=== PATIENT | male | born 1950 | race Caucasian/White ===

== ENCOUNTER → 2016-04-18 | Outpatient (CLI) | payer OTHER | LOC: FIMAGING 11:41 | PROVIDERS: ATTEND Internal Medicine | DX: J18.1 Lobar pneumonia, unspecified organism (principal) ==

== ENCOUNTER 2016-04-22 13:26 | Inpatient (IN) | payer OTHER ==
[2016-04-22] MEDS ORDERED: NS 1,000 ML BAG *FOR SEPSIS ORDER SET ONLY IV ONE (13:54)
--- NOTE | 2016-04-22 13:58 | EDPHY ---
H & P Stated Complaint: recent pneumonia. Shacky, confused, "not himself" for 2 days. Time Seen by Provider: 04/22/16 13:45 HPI/ROS: CHIEF COMPLAINT: Pneumonia, confusion HISTORY OF PRESENT ILLNESS: Patient is a 65-year-old man with a history of chronic back pain treated with OxyContin oxycodone by Dr. Vanesa Segura of the pain service. His girlfriend brings him to the emergency department concerned for decreased mental status. She states that he saw Dr. Perrin on and was diagnosed with pneumonia on chest x-ray and started on amoxicillin. His states that over the last 4 days however his mental status has gradually decreased and he is confused. He had a fever on Friday and Friday. Here triage his oxygen saturations 97% on room air. His states that he does have a history of asthma but has not been wheezing recently. Patient seems somnolecent and over narcotized he says that he "feels great". REVIEW OF SYSTEMS: Constitutional: See HPI EENTM: denies: blurred vision, double vision, nose congestion Respiratory: See HPI Cardiac: denies: chest pain, irregular heart rate, lightheadedness, palpitations Gastrointestinal/Abdominal: denies: abdominal pain, diarrhea, nausea, vomiting, blood streaked stools Genitourinary: denies: dysuria, frequency, hematuria, pain Musculoskeletal: denies: joint pain, muscle pain Skin: denies: lesions, rash, jaundice, bruising Neurological: denies: headache, numbness, paresthesia, tingling, dizziness, weakness Hematologic/Lymphatic: denies: blood clots, easy bleeding, easy bruising Immunologic/allergic: denies: HIV/AIDS, transplant EXAM: GENERAL: Well-appearing, well-nourished and in no acute distress. HEAD: Atraumatic, normocephalic. EYES: Pupils 2 mm, equal round and reactive to light, extraocular movements intact, sclera anicteric, conjunctiva are normal. ENT: TMs normal, nares patent, oropharynx clear without exudates. Moist mucous membranes. NECK: Normal range of motion, supple without lymphadenopathy or JVD. LUNGS: Coarse breath sounds right lower lobe. HEART: Regular rate and rhythm without murmurs, rubs or gallops. ABDOMEN: Soft, nontender, normoactive bowel sounds. No guarding, no rebound. No masses appreciated. BACK: No CVA tenderness, no spinal tenderness, step-offs or deformities EXTREMITIES: Normal range of motion, no pitting or edema. No clubbing or cyanosis. NEUROLOGICAL: Cranial nerves II through XII grossly intact. Normal speech, normal gait. 5/5 strength, normal movement in all extremities, normal sensation PSYCH: Normal mood, normal affect. SKIN: Warm, dry, normal turgor, no visible rashes or lesions. Source: Patient Exam Limitations: No limitations - Personal History Current Tetanus Diphtheria and Acellular Pertussis (TDAP): Unsure - Medical/Surgical History Hx Asthma: Yes Hx Chronic Respiratory Disease: No Hx Diabetes: No Hx Cardiac Disease: No Hx Renal Disease: No Hx Cirrhosis: No Hx Alcoholism: No Hx HIV/AIDS: No Hx Splenectomy or Spleen Trauma: No Other PMH: Back pain. - Family History Significant Family History: No pertinent family hx - Social History Smoking Status: Never smoked Alcohol Use: None Drug Use: None Constitutional: Initial Vital Signs Temperature (C) 36.8 C 04/22/16 13:32 Heart Rate 80 04/22/16 13:32 Respiratory Rate 16 04/22/16 13:32 Blood Pressure 112/65 04/22/16 13:32 O2 Sat (%) 71 L 04/22/16 13:32 O2 Delivery Mode Nasal Cannula O2 (L/minute) 5 Allergies/Adverse Reactions: No Allergies [NKDA] Allergy (Verified 04/22/16 15:16) Home Medications: Medication Instructions Recorded Amox Tr/K Clav (Augmentin) 500 mg PO Q8 04/22/16 [Augmentin 500/125 MG TAB (*)] Atorvastatin Calcium [Lipitor 20 20 mg PO HS 04/22/16 mg (*)] Diazepam [Valium 10 MG (*)] 10 mg PO HS PRN 04/22/16 Fluticasone Nasal [Flonase Nasal 1 sprays NASAL DAILY 04/22/16 Brutus (RX)] Fluticasone/Salmeter 250/50Mcg 1 puffs IH DAILY 04/22/16 [Advair 250/50 (*)] Hydrochlorothiazide [HCTZ (*)] 12.5 mg PO DAILY 04/22/16 Lisinopril [Zestril 20 mg (*)] 20 mg PO DAILY 04/22/16 Naproxen Sodium [Aleve 220 MG (*)] 220 mg PO BID 04/22/16 Pregabalin [Lyrica] 300 mg PO BID 04/22/16 Zolpidem Tartrate [Ambien 10 mg] 5 - 10 mg PO HS PRN 04/22/16 oxyCODONE HCL [Oxycontin] 160 mg PO BID 04/22/16 oxyCODONE IR [Oxycodone Ir (*)] 15 mg PO Q6H PRN MDD MAX 3 TABS 04/22/16 DAILY oxyCODONE IR [Oxycodone Ir (*)] 30 mg PO Q4H PRN MDD MAX 6 TABS 04/22/16 DAILY Medical Decision Making - Diagnostics Imaging: X-ray: chest x-ray was obtained. I viewed the images myself on the PACS system. My interpretation of the images is: Bilateral infiltrates. The radiologist interpretation is bilateral infiltrates. ED Course/Re-evaluation: 3:05 p.m. we discussed the x-ray results. The patient is currently satting 93% on nasal cannula. I will admit for pneumonia and severe sepsis. He is receiving his fluid bolus. His vital signs remained stable. 3:10 p.m. I discussed the case with Dr. Traore who will admit. She agrees with Levaquin. Spoke with the family who understands. Differential Diagnosis: Partial list of the Differential diagnosis considered include but were not limited to; pneumonia, sepsis, electrolyte abnormality and although unlikely based on the history and physical exam, I also considered meningitis, CVA, acute coronary disease. Critical Care Time: Critical care time spent by me, Dr. Louise exclusive with this patient was 45 minutes, exclusive of the PA time exclusive of procedures. The organ system that was at risk was lungs and cardiovascular and I gave antibiotics and intravenous fluids to prevent worsening of the patient's condition - Data Points Laboratory Results: Laboratory Results 04/22/16 13:54 04/22/16 13:54 Microbiology Results: MICROBIOLOGY 04/22/16 13:54 Blood Blood Culture - Preliminary 04/22/16 14:39 Blood Blood Culture - Preliminary Medications Given: Discontinued Medications Levofloxacin/Dextrose (Levaquin 750 Mg (Premix)) 150 mls @ 100 mls/hr IV EDNOW ONE PRN Reason: Protocol Stop: 04/22/16 16:26 Last Admin: 04/22/16 15:25 Dose: 150 mls Levofloxacin/Dextrose (Levaquin 250 Mg (Premix)) 50 mls @ 50 mls/hr IV DAILY MARIELA PRN Reason: Protocol Stop: 05/23/16 08:59 Last Admin: 04/23/16 09:04 Dose: 50 mls Clindamycin Phosphate/Dextrose (Cleocin 600 Mg (Premix)) 50 mls @ 100 mls/hr IV Q8HRS MARIELA PRN Reason: Protocol Stop: 05/22/16 21:59 Last Admin: 04/23/16 05:49 Dose: 50 mls Magnesium Citrate (Magnesium Citrate) 150 - 300 ml PO ONCE ONE Stop: 04/24/16 09:36 Last Admin: 04/24/16 11:03 Dose: Not Given Pneumococcal 13-Valent Conj Vacc (Prevnar 13 Syringe) 0.5 ml IM .ONCE ONE Stop: 04/23/16 09:44 Last Admin: 04/23/16 11:03 Dose: 0.5 ml Sodium Chloride (Ns *For Sepsis Order Set Only*) 2,654 ml 30 ml/kg (2654 ml) IV EDNOW ONE Stop: 04/22/16 13:55 Last Admin: 04/22/16 14:04 Dose: 2,654 ml Departure - Departure Disposition: [facility] Acute Clinical Impression: Severe sepsis, Renal insufficiency Pneumonia Qualifiers: Pneumonia type: due to unspecified organism Laterality: bilateral Lung location : lower lobe of lung Qualified Code(s): J18.9 - Pneumonia, unspecified organism Condition: Critical
[2016-04-22 14:09] LABS: % IMMATURE GRANULYOCYTES 0.4 % (0.0-1.1); ABSOLUTE IMMATURE GRANULOCYTES 0.03 10^3/uL (0.00-0.10); ADD DIFF? NO; ADD MORPH? NO; ADD SCAN? YES; FRAGMENT RBC FLAG 0 (0-99); HEMATOCRIT 41.8 % (40.0-51.0); HEMOGLOBIN 14.1 g/dL (13.7-17.5); LEFT SHIFT FLG 60 (0-99); LIPEMIA HEMOLYSIS FLAG 80 (0-99); MEAN CELL HEMOGLOBIN 28.9 pg (27.9-34.1); MEAN CELL HEMOGLOBIN CONCENTR. 33.7 g/dL (32.4-36.7); MEAN CELL VOLUME 85.7 fL (81.5-99.8); MEAN PLATELET VOLUME 9.9 fL (8.7-11.7); PLATELET CLUMPS FLAG 0 (0-99); PLATELET COUNT 234 10^3/uL (150-400); RED BLOOD CELL COUNT 4.88 10^6/uL (4.40-6.38); RED CELL DISTRIBUTION WIDTH 14.2 % (11.5-15.2)
[2016-04-22 14:14] LABS: ATYPICAL LYMPHOCYTE FLAG 110 (0-99)
[2016-04-22 14:17] LABS: INR 1.34 (0.83-1.16); PROTIME(PATIENT) 16.6 SEC (12.0-15.0)
[2016-04-22 14:18] LABS: APTT 30.4 SEC (23.0-38.0)
[2016-04-22 14:29] LABS: ANION GAP 14 mEq/L (8-16); BILIRUBIN,TOTAL 1.2 mg/dL (0.1-1.4); CALCIUM 8.8 mg/dL (8.5-10.4); CARBON DIOXIDE 23 mEq/l (22-31); CHLORIDE 97 mEq/L (97-110); CREATININE 4.6 mg/dL (0.7-1.3); GLOMERULAR FILTRATION RATE 13; GLUCOSE 117 mg/dL (70-100); POTASSIUM 4.7 mEq/L (3.5-5.2); SODIUM 134 mEq/L (134-144)
[2016-04-22 14:53] LABS: SCAN NEGATIVE
[2016-04-22] MEDS ORDERED: DIAZEPAM 10 MG TAB PO PRN (16:41)
[2016-04-22] MEDS ORDERED: oxyCODONE IR 15 MG TAB PO PRN (16:41)
[2016-04-22] MEDS ORDERED: ZOLPIDEM TARTRATE 5 MG TAB PO PRN (16:49)
[2016-04-22 19:31] LABS: COLOR YELLOW; LEUKOCYTE ESTERASE,URINE NEGATIVE (NEGATIVE); NITRITE,URINE NEGATIVE (NEGATIVE)
--- NOTE | 2016-04-22 19:35 | GHP ---
[f rep st] HISTORY AND PHYSICAL DATE OF ADMISSION: 04/22/2016 CHIEF COMPLAINT: Confusion. HISTORY: The patient is a 65-year-old male who has been suffering from bronchitis for the last 2 weeks. He saw his primary care doctor last Friday and was diagnosed with walking pneumonia and given a prescription for Augmentin. Despite this, he has had worsening status including worsening shortness of breath and confusion. He had a fever at the beginning of his illness, but none recently. He has a new cough, productive of a yellow, dark sputum. There has been no chest pain. There has been no lower extremity edema. He has had poor oral intake and has been progressively more confused as noticed by his girlfriend. He has been dizzy, lightheaded, fatigue, and weak. PAST MEDICAL HISTORY: 1. Chronic back pain with continuous narcotic dependency. 2. Hypertension. 3. Hyperlipidemia. MEDICATIONS: Please see computer record for full detailed list. ALLERGIES: No known drug allergies. SOCIAL HISTORY: No smoking. Social alcohol. He lives with his girlfriend. REVIEW OF SYSTEMS: Complete review of systems obtained. Review of systems is negative regarding constitutional, HEENT, GI, pulmonary, cardiovascular, , hematology, skin, musculoskeletal, endocrine, and psychiatric, except for positives and negatives as in HPI. FAMILY HISTORY: Father was an alcoholic. Mother of a stroke. PHYSICAL EXAMINATION: GENERAL: Well-developed, well-nourished male, in no acute distress. VITAL SIGNS: Temperature is 36.8, pulse of 80, blood pressure 112/65, saturating 71% on room air, 91% on 5 L. EYES: Normal conjunctivae. Pupils equal and react to light. ENT: Normal ears and nose. Hearing intact. Normal lips and teeth. Oropharynx is moist. NECK: Trachea midline. No thyromegaly. CHEST: Normal respiratory effort. LUNGS: Decreased breath sounds with rales on the right. No wheeze. CARDIOVASCULAR SYSTEM: Regular rate and rhythm. No murmur. No lower extremity edema. ABDOMEN: Soft, nontender. No hepatosplenomegaly. SKIN: Warm, dry, intact. No rash. MUSCULOSKELETAL: No cyanosis or clubbing. Strength 5/5 upper and lower extremities. NEUROLOGIC: Cranial nerve intact. Normal sensation to light touch. PSYCHIATRIC: Alert and oriented x3, but slow to respond. Limited judgment and insight, poor historian, cooperative. LABORATORY DATA: White count 8.4, hematocrit 41.8, platelets 234. Sodium 134, potassium 4.7, chloride 97, bicarb 23, BUN 84, creatinine 4.6, glucose 117. Lactate is 1.2. INR is 1.34. Chest x-ray reviewed by me and my personal interpretation is bilateral infiltrate, right greater than left. This case was discussed with Dr. Louise, emergency room physician. The patient was felt to meet severe sepsis criteria and was given IV fluid bolus in the emergency room. ASSESSMENT/PLAN: 1. Pneumonia. This is more consistent with an atypical pneumonia versus an aspiration pneumonia, which may be due to his excessive narcotic use. Interestingly on presentation, he does not have any fever, leukocytosis, or tachycardia. He is significantly hypoxemic with significant bilateral infiltrates. We will start Levaquin and clindamycin. We will check influenza. We will recheck a chest x-ray in the morning. 2. Acute renal failure. I suspect he is hypovolemic and continued to take his SOHEILA inhibitor and diuretic for hypertension. We will check a renal ultrasound and urinalysis. Will continue IV fluids and recheck creatinine in the morning. Post void residual 700cc so suspect element of urinary retention. Sung catheter placed. Will start Flomax. 3. Acute respiratory failure. He is now stabilized on 5 L. 4. Chronic back pain with continuous narcotic dependency. He is on very high doses of OxyContin which doses are definitely too high during this acute illness and perhaps need to think about more long-term reduction as well. I will cut his OxyContin doses in half and instructed nurses to hold OxyContin for increased sedation. CODE STATUS: Full. ADMISSION STATUS: Will admit to inpatient as he is significantly sick and anticipate greater than 2 midnights will be required for stabilization. DVT PROPHYLAXIS: He is high risk. Will use subcu heparin given his acute renal failure. /[id number]/MODL MTDD
[2016-04-22 19:43] LABS: BACTERIA 1+ /hpf (NONE SEEN); MUCUS TRACE /lpf (NONE-1+)
[2016-04-22] MEDS ORDERED: oxyCODONE CR 80 MG TAB PO SCH (21:00)
[2016-04-22] MEDS: CLINDAMYCIN 600 MG/DEXTROSE 50 ML IV SCH (21:12)
[2016-04-22] MEDS: HEPARIN 5,000 UNIT/0.5 ML SYR SC SCH (21:12)
[2016-04-22] MEDS: PREGABALIN 150 MG CAP PO SCH (21:13)
[2016-04-22] MEDS: oxyCODONE CR 80 MG TAB PO SCH (21:13)
[2016-04-22] MEDS: ATORVASTATIN CALCIUM 20 MG TAB PO SCH (21:13)
[2016-04-22] MEDS: NS 1,000 ML IV SCH (22:56)
[2016-04-23 04:36] LABS: % IMMATURE GRANULYOCYTES 0.3 % (0.0-1.1); ABSOLUTE IMMATURE GRANULOCYTES 0.02 10^3/uL (0.00-0.10); ADD DIFF? NO; ADD MORPH? NO; ADD SCAN? YES; FRAGMENT RBC FLAG 0 (0-99); HEMATOCRIT 39.1 % (40.0-51.0); HEMOGLOBIN 13.1 g/dL (13.7-17.5); LEFT SHIFT FLG 40 (0-99); LIPEMIA HEMOLYSIS FLAG 80 (0-99); MEAN CELL HEMOGLOBIN 28.5 pg (27.9-34.1); MEAN CELL HEMOGLOBIN CONCENTR. 33.5 g/dL (32.4-36.7); MEAN PLATELET VOLUME 9.8 fL (8.7-11.7); PLATELET CLUMPS FLAG 0 (0-99); PLATELET COUNT 225 10^3/uL (150-400); RED CELL DISTRIBUTION WIDTH 14.2 % (11.5-15.2)
[2016-04-23 04:37] LABS: ATYPICAL LYMPHOCYTE FLAG 120 (0-99)
[2016-04-23 05:11] LABS: ALANINE AMINOTRANSFERASE 39 IU/L (21-72); ALBUMIN 2.8 g/dL (3.5-5.0); ALKALINE PHOSPHATASE 52 IU/L (38-126); ANION GAP 9 mEq/L (8-16); ASPARTATE AMINOTRANSFERASE 37 IU/L (17-59); BILIRUBIN,TOTAL 0.8 mg/dL (0.1-1.4); BILIRUBIN-CONJUGATED 0.7 mg/dL (0.0-0.5); BILIRUBIN-UNCONJUGATED 0.1 mg/dL (0.0-1.1); CALCIUM 8.4 mg/dL (8.5-10.4); CARBON DIOXIDE 21 mEq/l (22-31); CHLORIDE 107 mEq/L (97-110); CREATININE 2.9 mg/dL (0.7-1.3); GLOMERULAR FILTRATION RATE 22; GLUCOSE 91 mg/dL (70-100); POTASSIUM 5.1 mEq/L (3.5-5.2); SODIUM 137 mEq/L (134-144); TOTAL PROTEIN 5.7 g/dL (6.3-8.2)
[2016-04-23 05:24] LABS: SCAN POSITIVE
[2016-04-23 05:35] LABS: PLATELET ESTIMATE ADEQUATE (ADEQ)
[2016-04-23] MEDS: HEPARIN 5,000 UNIT/0.5 ML SYR SC SCH ×3 (05:49→21:26)
[2016-04-23] MEDS: CLINDAMYCIN 600 MG/DEXTROSE 50 ML IV SCH (05:49)
[2016-04-23] MEDS ORDERED: levOFLOXACIN 250 MG/DEXTROSE 50 ML IV SCH (09:00)
[2016-04-23] MEDS: TAMSULOSIN HCL 0.4 MG CAP PO SCH (09:04)
[2016-04-23] MEDS: oxyCODONE CR 80 MG TAB PO SCH ×2 (09:05→21:24)
[2016-04-23] MEDS: PREGABALIN 150 MG CAP PO SCH ×2 (09:05→21:24)
[2016-04-23] MEDS: FLUTICASONE NASAL 120 SPRAYS/16 GM MDI EACHNARE SCH (09:06)
[2016-04-23] MEDS: NS 1,000 ML IV SCH (09:08)
[2016-04-23] MEDS ORDERED: PNEUMOC 13-VAL CONJ-DIP CRM/PF 0.5 ML SYR IM ONE (09:43)
[2016-04-23] MEDS: FLUTICASONE/SALMETER 250/50MCG DISKUS IH SCH (10:38)
--- NOTE | 2016-04-23 11:06 | HOSPPROG ---
Hospitalist Progress Note Assessment/Plan: * community-acquired pneumonia versus aspiration versus atypical * seemed to have failed Augmentin * will treat with IV Invanz and doxycycline to cover aspiration and atypical * acute renal failure * had been on NSAIDs, lisinopril and hydrochlorothiazide * continue IV fluids * seems to be getting better * chronic back pain on high dose of narcotics * reducing OxyContin today due to over sedation * hypertension * holding lisinopril * constipation * start bowel protocol and scheduled MiraLax Subjective: feels about the same. Minimal cough Objective: Vital Signs Temp Pulse Resp BP Pulse Ox 36.4 C 68 18 112/78 96 04/23/16 08:13 04/23/16 08:13 04/23/16 08:13 04/23/16 08:13 04/23/16 08:13 Microbiology 04/22/16 18:30 - Final Sputum, Expectorated Laboratory Results 04/23/16 03:42 04/23/16 03:42 04/22/16 04/23/16 04/24/16 05:59 05:59 05:59 Intake Total 3700 Output Total 4400 Balance -700 PT 16.6 SEC (12.0-15.0) H 04/22/16 13:54 INR 1.34 (0.83-1.16) H 04/22/16 13:54 chest x-ray personally viewed interpreted shows right middle lobe and lower lobe pneumonia tele personally viewed interpreted normal sinus rhythm - Physical Exam Constitutional: no apparent distress, appears nourished, not in pain Eyes: PERRL, anicteric sclera, EOMI Ears, Nose, Mouth, Throat: moist mucous membranes, hearing normal, ears appear normal Cardiovascular: regular rate and rhythym, no murmur, rub, or gallop Respiratory: no respiratory distress, rhonchi ( scattered bilaterally) Gastrointestinal: normoactive bowel sounds, soft, non-tender abdomen, no palpable masses Skin: warm Neurologic: AAOx3 Psychiatric: other ( slow responses. Seems a little bit over-sedated) ICD10 Worksheet Patient Problems: Problems Problem Status Onset Chronic Disease Mgmt/Transitional Care Acute Pneumonia Acute Renal insufficiency Acute Severe sepsis Acute
[2016-04-23] MEDS ORDERED: POLYETHYLENE GLYCOL 3350 17 GM PKT PO PRN (11:12)
[2016-04-23] MEDS ORDERED: MAGNESIUM HYDROXIDE 30 ML UDCUP PO PRN (11:12)
[2016-04-23] MEDS ORDERED: LACTULOSE 20 GM/30 ML UDCUP PO PRN (11:12)
[2016-04-23] MEDS ORDERED: BISACODYL 10 MG SUPP PR PRN (11:12)
[2016-04-23] MEDS: ERTAPENEM 1 GM in NS 100 ML IV SCH (11:58)
[2016-04-23] MEDS: DOXYCYCLINE HYCLATE 100 MG CAP/TAB PO SCH ×2 (11:58→21:23)
[2016-04-23] MEDS: POLYETHYLENE GLYCOL 3350 17 GM PKT PO SCH (12:10)
[2016-04-23] MEDS: ATORVASTATIN CALCIUM 20 MG TAB PO SCH (21:24)
[2016-04-23] MEDS: SENNOSIDES/DOCUSATE SODIUM TAB PO SCH (21:24)
[2016-04-24] MEDS: NS 1,000 ML IV SCH (03:59)
[2016-04-24] MEDS: oxyCODONE IR 15 MG TAB PO PRN (03:59)
[2016-04-24 05:14] LABS: % IMMATURE GRANULYOCYTES 0.4 % (0.0-1.1); ABSOLUTE IMMATURE GRANULOCYTES 0.03 10^3/uL (0.00-0.10); ADD DIFF? NO; ADD MORPH? NO; ADD SCAN? NO; ATYPICAL LYMPHOCYTE FLAG 50 (0-99); FRAGMENT RBC FLAG 10 (0-99); HEMATOCRIT 37.4 % (40.0-51.0); HEMOGLOBIN 12.4 g/dL (13.7-17.5); LEFT SHIFT FLG 30 (0-99); LIPEMIA HEMOLYSIS FLAG 80 (0-99); MEAN CELL HEMOGLOBIN 28.9 pg (27.9-34.1); MEAN CELL HEMOGLOBIN CONCENTR. 33.2 g/dL (32.4-36.7); MEAN CELL VOLUME 87.2 fL (81.5-99.8); MEAN PLATELET VOLUME 10.3 fL (8.7-11.7); PLATELET CLUMPS FLAG 0 (0-99); PLATELET COUNT 271 10^3/uL (150-400); RED BLOOD CELL COUNT 4.29 10^6/uL (4.40-6.38)
[2016-04-24 05:32] LABS: ANION GAP 7 mEq/L (8-16); CALCIUM 8.3 mg/dL (8.5-10.4); CARBON DIOXIDE 26 mEq/l (22-31); CHLORIDE 108 mEq/L (97-110); CREATININE 1.8 mg/dL (0.7-1.3); GLOMERULAR FILTRATION RATE 38; GLUCOSE 96 mg/dL (70-100); POTASSIUM 5.1 mEq/L (3.5-5.2); SODIUM 141 mEq/L (134-144)
[2016-04-24] MEDS: HEPARIN 5,000 UNIT/0.5 ML SYR SC SCH ×3 (07:14→22:24)
[2016-04-24] MEDS: FLUTICASONE/SALMETER 250/50MCG DISKUS IH SCH (09:24)
[2016-04-24] MEDS: SENNOSIDES/DOCUSATE SODIUM TAB PO SCH ×2 (09:34→22:24)
[2016-04-24] MEDS: oxyCODONE CR 80 MG TAB PO SCH ×2 (09:35→22:23)
[2016-04-24] MEDS ORDERED: MAGNESIUM CITRATE 300 ML BOTTLE PO ONE (09:35)
[2016-04-24] MEDS: PREGABALIN 150 MG CAP PO SCH ×2 (09:35→22:24)
[2016-04-24] MEDS: POLYETHYLENE GLYCOL 3350 17 GM PKT PO SCH (09:35)
[2016-04-24] MEDS: TAMSULOSIN HCL 0.4 MG CAP PO SCH (09:35)
[2016-04-24] MEDS: DOXYCYCLINE HYCLATE 100 MG CAP/TAB PO SCH ×2 (09:35→22:24)
[2016-04-24] MEDS: ERTAPENEM 1 GM in NS 100 ML IV SCH (09:37)
--- NOTE | 2016-04-24 09:39 | HOSPPROG ---
Hospitalist Progress Note Assessment/Plan: * community-acquired pneumonia versus aspiration versus atypical * seemed to have failed Augmentin * will treat with IV Invanz and doxycycline to cover aspiration and atypical * acute hypoxic respiratory failure * wean oxygen * acute renal failure * had been on NSAIDs, lisinopril and hydrochlorothiazide * continue IV fluids * seems to be getting better * chronic back pain on high dose of narcotics * reducing OxyContin today due to over sedation * hypertension * holding lisinopril * constipation * start bowel protocol and scheduled MiraLax * try magnesium citrate * disposition * possible home tomorrow Subjective: feels better overall. Some coughing Objective: Vital Signs Temp Pulse Resp BP Pulse Ox 36.9 C 75 18 135/83 H 95 04/24/16 07:33 04/24/16 09:23 04/24/16 09:23 04/24/16 07:33 04/24/16 09:23 Microbiology 04/22/16 18:30 - Final Sputum, Expectorated Laboratory Results 04/24/16 03:46 04/24/16 03:46 04/23/16 04/24/16 04/25/16 05:59 05:59 05:59 Intake Total 3700 4400 Output Total 4400 2750 Balance -700 1650 PT 16.6 SEC (12.0-15.0) H 04/22/16 13:54 INR 1.34 (0.83-1.16) H 04/22/16 13:54 - Physical Exam Constitutional: no apparent distress, appears nourished, not in pain Eyes: anicteric sclera, EOMI Ears, Nose, Mouth, Throat: moist mucous membranes, hearing normal Cardiovascular: regular rate and rhythym, no murmur, rub, or gallop Respiratory: no respiratory distress, no rales or rhonchi, clear to auscultation Gastrointestinal: normoactive bowel sounds, soft, non-tender abdomen, no palpable masses Skin: warm Neurologic: AAOx3, other ( little less somnolent) Psychiatric: other ICD10 Worksheet Patient Problems: Problems Problem Status Onset Chronic Disease Mgmt/Transitional Care Acute Pneumonia Acute Renal insufficiency Acute Severe sepsis Acute
[2016-04-24] MEDS: FLUTICASONE NASAL 120 SPRAYS/16 GM MDI EACHNARE SCH (09:45)
[2016-04-24] MEDS: ATORVASTATIN CALCIUM 20 MG TAB PO SCH (22:24)
[2016-04-25] MEDS: HEPARIN 5,000 UNIT/0.5 ML SYR SC SCH (05:16)
[2016-04-25 05:42] LABS: ANION GAP 8 mEq/L (8-16); CALCIUM 8.4 mg/dL (8.5-10.4); CARBON DIOXIDE 24 mEq/l (22-31); CHLORIDE 112 mEq/L (97-110); CREATININE 1.3 mg/dL (0.7-1.3); GLOMERULAR FILTRATION RATE 55; GLUCOSE 96 mg/dL (70-100); POTASSIUM 5.4 mEq/L (3.5-5.2); SODIUM 144 mEq/L (134-144)
[2016-04-25] MEDS: FLUTICASONE/SALMETER 250/50MCG DISKUS IH SCH (08:42)
[2016-04-25] MEDS ORDERED: oxyCODONE CR 80 MG TAB PO SCH (10:00)
--- NOTE | 2016-04-25 10:02 | HOSPPROG ---
Hospitalist Progress Note Assessment/Plan: * community-acquired pneumonia versus aspiration versus atypical * seemed to have failed Augmentin * will treat with IV Invanz and doxycycline to cover aspiration and atypical * recheck chest x-ray * acute hypoxic respiratory failure * wean oxygen * acute renal failure * improved * . IV fluids * chronic back pain on high dose of narcotics * will reduce OxyContin today even more due to over sedation * hypertension * holding lisinopril * constipation * resolved * disposition * would like to clear more before dc Subjective: no new complaints Objective: Vital Signs Temp Pulse Resp BP Pulse Ox 36.6 C 68 13 134/75 H 95 04/25/16 07:41 04/25/16 08:43 04/25/16 08:43 04/25/16 07:41 04/25/16 08:43 Microbiology 04/22/16 18:30 - Final Sputum, Expectorated Sputum Culture - Final Julia Albicans Laboratory Results 04/24/16 03:46 04/25/16 03:58 04/24/16 04/25/16 04/26/16 05:59 05:59 05:59 Intake Total 4400 4055 Output Total 2750 1500 Balance 1650 2555 PT 16.6 SEC (12.0-15.0) H 04/22/16 13:54 INR 1.34 (0.83-1.16) H 04/22/16 13:54 - Physical Exam Constitutional: no apparent distress, appears nourished, not in pain Eyes: anicteric sclera, EOMI Ears, Nose, Mouth, Throat: moist mucous membranes, hearing normal, ears appear normal Cardiovascular: regular rate and rhythym, no murmur, rub, or gallop Respiratory: no respiratory distress, inspiratory crackles ( more on the right) Gastrointestinal: normoactive bowel sounds, soft, non-tender abdomen, no palpable masses Genitourinary: hanson in urethra Skin: warm Neurologic: AAOx3 Psychiatric: other ( still somewhat sedated) ICD10 Worksheet Patient Problems: Problems Problem Status Onset Chronic Disease Mgmt/Transitional Care Acute Pneumonia Acute Renal insufficiency Acute Severe sepsis Acute
[2016-04-25] MEDS: PREGABALIN 150 MG CAP PO SCH ×2 (10:04→20:43)
[2016-04-25] MEDS: TAMSULOSIN HCL 0.4 MG CAP PO SCH (10:04)
[2016-04-25] MEDS: ERTAPENEM 1 GM in NS 100 ML IV SCH (10:05)
[2016-04-25] MEDS: oxyCODONE CR 80 MG TAB PO SCH (10:05)
[2016-04-25] MEDS: DOXYCYCLINE HYCLATE 100 MG CAP/TAB PO SCH ×2 (10:05→20:43)
[2016-04-25] MEDS: ENOXAPARIN 40 MG/0.4 ML SYR SC SCH (10:10)
[2016-04-25] MEDS: FLUTICASONE NASAL 120 SPRAYS/16 GM MDI EACHNARE SCH (10:10)
[2016-04-25] MEDS: POLYETHYLENE GLYCOL 3350 17 GM PKT PO SCH (10:11)
[2016-04-25] MEDS: SENNOSIDES/DOCUSATE SODIUM TAB PO SCH ×2 (10:11→20:45)
[2016-04-25] MEDS: ATORVASTATIN CALCIUM 20 MG TAB PO SCH (20:43)
[2016-04-26] MEDS: oxyCODONE IR 15 MG TAB PO PRN (00:50)
[2016-04-26 05:09] LABS: % IMMATURE GRANULYOCYTES 1.1 % (0.0-1.1); ABSOLUTE IMMATURE GRANULOCYTES 0.11 10^3/uL (0.00-0.10); ADD DIFF? NO; ADD MORPH? NO; ADD SCAN? NO; ATYPICAL LYMPHOCYTE FLAG 40 (0-99); FRAGMENT RBC FLAG 0 (0-99); HEMATOCRIT 37.3 % (40.0-51.0); HEMOGLOBIN 12.2 g/dL (13.7-17.5); LEFT SHIFT FLG 10 (0-99); LIPEMIA HEMOLYSIS FLAG 80 (0-99); MEAN CELL HEMOGLOBIN 28.6 pg (27.9-34.1); MEAN CELL HEMOGLOBIN CONCENTR. 32.7 g/dL (32.4-36.7); MEAN CELL VOLUME 87.4 fL (81.5-99.8); MEAN PLATELET VOLUME 10.2 fL (8.7-11.7); PLATELET CLUMPS FLAG 20 (0-99); PLATELET COUNT 308 10^3/uL (150-400); RED BLOOD CELL COUNT 4.27 10^6/uL (4.40-6.38); RED CELL DISTRIBUTION WIDTH 13.8 % (11.5-15.2)
[2016-04-26 05:17] LABS: ALANINE AMINOTRANSFERASE 51 IU/L (21-72); ALBUMIN 2.7 g/dL (3.5-5.0); ALKALINE PHOSPHATASE 56 IU/L (38-126); ANION GAP 9 mEq/L (8-16); ASPARTATE AMINOTRANSFERASE 32 IU/L (17-59); BILIRUBIN,TOTAL 0.8 mg/dL (0.1-1.4); CALCIUM 8.7 mg/dL (8.5-10.4); CARBON DIOXIDE 27 mEq/l (22-31); CHLORIDE 108 mEq/L (97-110); CREATININE 1.2 mg/dL (0.7-1.3); GLOMERULAR FILTRATION RATE > 60; GLUCOSE 91 mg/dL (70-100); POTASSIUM 5.1 mEq/L (3.5-5.2); SODIUM 144 mEq/L (134-144); TOTAL PROTEIN 5.6 g/dL (6.3-8.2)
[2016-04-26] MEDS: FLUTICASONE/SALMETER 250/50MCG DISKUS IH SCH (09:07)
[2016-04-26] MEDS: PREGABALIN 150 MG CAP PO SCH ×2 (09:29→20:06)
[2016-04-26] MEDS: TAMSULOSIN HCL 0.4 MG CAP PO SCH (09:30)
[2016-04-26] MEDS: DOXYCYCLINE HYCLATE 100 MG CAP/TAB PO SCH ×2 (09:30→20:06)
[2016-04-26] MEDS: ERTAPENEM 1 GM in NS 100 ML IV SCH (09:30)
[2016-04-26] MEDS: ENOXAPARIN 40 MG/0.4 ML SYR SC SCH (09:30)
[2016-04-26] MEDS: POLYETHYLENE GLYCOL 3350 17 GM PKT PO SCH (10:12)
[2016-04-26] MEDS: SENNOSIDES/DOCUSATE SODIUM TAB PO SCH ×2 (10:13→21:18)
[2016-04-26] MEDS ORDERED: FUROSEMIDE 40 MG/4 ML VIAL IVP ONE (10:48)
--- NOTE | 2016-04-26 10:52 | HOSPPROG ---
Hospitalist Progress Note Assessment/Plan: * community-acquired pneumonia versus aspiration versus atypical * seemed to have failed Augmentin * will treat with IV Invanz and doxycycline to cover aspiration and atypical * acute hypoxic respiratory failure * wean oxygen * will give 1 dose of Lasix in case there may be a component of pulmonary edema * acute renal failure * improved * chronic back pain on high dose of narcotics * seems better on smaller dose of OxyContin * hypertension * holding lisinopril * constipation * resolved * disposition * possible discharge tomorrow Subjective: Feeling better. Wants to go home. Objective: Vital Signs Temp Pulse Resp BP Pulse Ox 36.6 C 71 16 138/75 H 86 L 04/26/16 07:29 04/26/16 09:08 04/26/16 09:08 04/26/16 07:29 04/26/16 09:28 Laboratory Results 04/26/16 03:32 04/26/16 03:32 04/25/16 04/26/16 04/27/16 05:59 05:59 05:59 Intake Total 4055 2148 Output Total 1500 1400 Balance 2555 748 PT 16.6 SEC (12.0-15.0) H 04/22/16 13:54 INR 1.34 (0.83-1.16) H 04/22/16 13:54 Chest x-ray personally reviewed interpreted diffuse interstitial pattern pulmonary edema versus viral pneumonitis tele personally viewed interpreted normal sinus rhythm - Physical Exam Constitutional: no apparent distress, appears nourished, not in pain Eyes: anicteric sclera, EOMI Ears, Nose, Mouth, Throat: moist mucous membranes, hearing normal, ears appear normal Cardiovascular: regular rate and rhythym, no murmur, rub, or gallop Respiratory: no respiratory distress, inspiratory crackles ( bilateral bases) Gastrointestinal: normoactive bowel sounds, soft, non-tender abdomen, no palpable masses Skin: warm Neurologic: AAOx3, other ( more interactive and awake) Psychiatric: interacting appropriately, not anxious, not encephalopathic, thought process linear ICD10 Worksheet Patient Problems: Problems Problem Status Onset Chronic Disease Mgmt/Transitional Care Acute Pneumonia Acute Renal insufficiency Acute Severe sepsis Acute
[2016-04-26] MEDS: FLUTICASONE NASAL 120 SPRAYS/16 GM MDI EACHNARE SCH (11:41)
[2016-04-26] MEDS: ATORVASTATIN CALCIUM 20 MG TAB PO SCH (20:06)
[2016-04-27] MEDS: oxyCODONE IR 15 MG TAB PO PRN ×2 (03:42→12:09)
[2016-04-27] MEDS: PREGABALIN 150 MG CAP PO SCH ×2 (08:11→20:03)
[2016-04-27] MEDS: DOXYCYCLINE HYCLATE 100 MG CAP/TAB PO SCH ×2 (08:12→20:03)
[2016-04-27] MEDS: ENOXAPARIN 40 MG/0.4 ML SYR SC SCH (08:12)
[2016-04-27] MEDS: SENNOSIDES/DOCUSATE SODIUM TAB PO SCH ×2 (08:12→20:06)
[2016-04-27] MEDS: TAMSULOSIN HCL 0.4 MG CAP PO SCH (08:12)
[2016-04-27] MEDS: ERTAPENEM 1 GM in NS 100 ML IV SCH (08:35)
[2016-04-27] MEDS: POLYETHYLENE GLYCOL 3350 17 GM PKT PO SCH (08:36)
[2016-04-27] MEDS: FLUTICASONE NASAL 120 SPRAYS/16 GM MDI EACHNARE SCH (08:36)
[2016-04-27] MEDS: FLUTICASONE/SALMETER 250/50MCG DISKUS IH SCH (08:59)
[2016-04-27] MEDS ORDERED: FUROSEMIDE 40 MG/4 ML VIAL IVP ONE (10:29)
[2016-04-27] MEDS ORDERED: IOPAMIDOL (ISOVUE 370) 100 ML BTL IV ONE (10:46)
--- NOTE | 2016-04-27 10:59 | GDS ---
[f rep st] DISCHARGE SUMMARY I was going to discharge patient but he was too hypoxic with ambulation. /[id number]/MODL MTDD
--- NOTE | 2016-04-27 14:38 | HOSPPROG ---
Hospitalist Progress Note Assessment/Plan: * probable atypical pneumonia versus interstitial lung disease * getting better slowly with antibiotics but still quite hypoxic with ambulation * will get CT scan of the chest today to further evaluate * will give another dose of Lasix in case there is an element of fluid overload * may need to get pulmonology to see tomorrow * acute hypoxic respiratory failure * wean oxygen * * acute renal failure * resolved * chronic back pain on high dose of narcotics * seems better on smaller dose of OxyContin * hypertension * holding lisinopril * constipation * resolved * disposition * when oxygen requirement is better Subjective: Is feeling better. Wants to go home Objective: Vital Signs Temp Pulse Resp BP Pulse Ox 37.1 C 76 20 125/77 H 91 L 04/27/16 11:52 04/27/16 11:52 04/27/16 11:52 04/27/16 11:52 04/27/16 11:52 Laboratory Results 04/26/16 03:32 04/26/16 03:32 04/26/16 04/27/16 04/28/16 05:59 05:59 05:59 Intake Total 2148 500 Output Total 1400 Balance 748 500 PT 16.6 SEC (12.0-15.0) H 04/22/16 13:54 INR 1.34 (0.83-1.16) H 04/22/16 13:54 - Physical Exam Constitutional: no apparent distress, appears nourished, not in pain Eyes: anicteric sclera, EOMI Ears, Nose, Mouth, Throat: moist mucous membranes, hearing normal, ears appear normal Cardiovascular: regular rate and rhythym, no murmur, rub, or gallop, No edema Respiratory: no respiratory distress, no rales or rhonchi, clear to auscultation Gastrointestinal: normoactive bowel sounds, soft, non-tender abdomen, no palpable masses Skin: warm Neurologic: AAOx3, other ( more awake and conversive) ICD10 Worksheet Patient Problems: Problems Problem Status Onset Chronic Disease Mgmt/Transitional Care Acute Pneumonia Acute Renal insufficiency Acute Severe sepsis Acute
[2016-04-27] MEDS: ATORVASTATIN CALCIUM 20 MG TAB PO SCH (20:03)
[2016-04-28] MEDS: oxyCODONE IR 15 MG TAB PO PRN ×3 (00:13→13:18)
[2016-04-28] MEDS: PREGABALIN 150 MG CAP PO SCH ×2 (07:58→20:05)
[2016-04-28] MEDS: TAMSULOSIN HCL 0.4 MG CAP PO SCH (07:59)
[2016-04-28] MEDS: DOXYCYCLINE HYCLATE 100 MG CAP/TAB PO SCH ×2 (07:59→20:05)
[2016-04-28] MEDS: SENNOSIDES/DOCUSATE SODIUM TAB PO SCH ×2 (07:59→20:05)
[2016-04-28] MEDS: ENOXAPARIN 40 MG/0.4 ML SYR SC SCH (08:00)
[2016-04-28] MEDS: POLYETHYLENE GLYCOL 3350 17 GM PKT PO SCH (08:00)
[2016-04-28] MEDS: ERTAPENEM 1 GM in NS 100 ML IV SCH (10:32)
[2016-04-28] MEDS: FLUTICASONE/SALMETER 250/50MCG DISKUS IH SCH (10:33)
[2016-04-28] MEDS: FLUTICASONE NASAL 120 SPRAYS/16 GM MDI EACHNARE SCH (10:34)
[2016-04-28] MEDS ORDERED: ALBUTEROL 3 ML DEYVIAL ONE (13:57)
--- NOTE | 2016-04-28 15:11 | HOSPPROG ---
Hospitalist Progress Note Assessment/Plan: 65-year-old male admitted for hypoxemia shortness of breath and found to have bilateral infiltrates consistent with pneumonia. Patient is new to me today. -bilateral infiltrates consistent with interstitial pneumonitis or possibly aspiration. Patient is currently on Invanz and doxycycline and he is improving. He was afebrile with a normal white count and admission and continues to be afebrile. He also continues to be mildly hypoxic though he has no history of chronic respiratory failure. Though he is improving he is not resolved the problem. CTA of the chest shows no evidence of a pulmonary embolus but confirms the findings of interstitial pneumonitis with some right- sided pleural effusion. This finding suggests possibly both the acute and chronic process. -hypoxemia and chronic respiratory failure. He continues to require oxygen at 1 -2. -acute renal failure on presentation which has been slowly resolving. His creatinine is nearly normal and we will continue to follow on a daily basis. -chronic back pain: No complaints today. -protein caloric malnutrition: He is currently eating well and I believe has adequate caloric intake. -TSH is low. It is not critically low and can be followed up on an outpatient basis. -history of reactive airway disease for which she has received Advair in the past. -disposition: Possible 1-2 days. He will likely need home O2 on discharge. -DVT prophylaxis is with Lovenox and ambulation Subjective: No complaints of chest pain although he continues to feel weak. He remains hypoxic on room air. No fever nausea vomiting Objective: Vital Signs Temp Pulse Resp BP Pulse Ox 36.7 C 68 17 128/73 H 91 L 04/28/16 11:45 04/28/16 11:45 04/28/16 11:45 04/28/16 11:45 04/28/16 11:55 Laboratory Results 04/26/16 03:32 04/26/16 03:32 04/27/16 04/28/16 04/29/16 05:59 05:59 05:59 Intake Total 500 715 Balance 500 715 PT 16.6 SEC (12.0-15.0) H 04/22/16 13:54 INR 1.34 (0.83-1.16) H 04/22/16 13:54 - Time Spent With Patient Time Spent with Patient: greater than 35 minutes Time Spent with Patient: Greater than 35 minutes spent on this patients care, greater than 50% of time spent counseling, educating, and coordinating care regarding the above mentioned plan. - Pending Discharge Pending Discharge Within 24 Hours: Yes Pending Discharge Date: 04/29/16 Pending Discharge Time: 11:00 - Physical Exam Constitutional: no apparent distress Eyes: PERRL Ears, Nose, Mouth, Throat: moist mucous membranes Cardiovascular: regular rate and rhythym Respiratory: no respiratory distress, reduced air movement, rhonchi Gastrointestinal: normoactive bowel sounds, soft, non-tender abdomen Genitourinary: no bladder fullness Skin: warm Musculoskeletal: generalized weakness Neurologic: AAOx3, CN II-XII Intact ICD10 Worksheet Patient Problems: Problems Problem Status Onset Chronic Disease Mgmt/Transitional Care Acute Pneumonia Acute Severe sepsis Acute Renal insufficiency Acute
[2016-04-28] MEDS: ATORVASTATIN CALCIUM 20 MG TAB PO SCH (20:05)
[2016-04-29] MEDS: oxyCODONE IR 15 MG TAB PO PRN ×3 (01:23→13:47)
[2016-04-29 04:49] LABS: % IMMATURE GRANULYOCYTES 0.6 % (0.0-1.1); ABSOLUTE IMMATURE GRANULOCYTES 0.07 10^3/uL (0.00-0.10); ADD DIFF? NO; ADD MORPH? NO; ADD SCAN? NO; ATYPICAL LYMPHOCYTE FLAG 20 (0-99); FRAGMENT RBC FLAG 0 (0-99); HEMATOCRIT 40.4 % (40.0-51.0); HEMOGLOBIN 13.4 g/dL (13.7-17.5); LEFT SHIFT FLG 0 (0-99); LIPEMIA HEMOLYSIS FLAG 80 (0-99); MEAN CELL HEMOGLOBIN 28.4 pg (27.9-34.1); MEAN CELL HEMOGLOBIN CONCENTR. 33.2 g/dL (32.4-36.7); MEAN CELL VOLUME 85.6 fL (81.5-99.8); MEAN PLATELET VOLUME 10.1 fL (8.7-11.7); PLATELET CLUMPS FLAG 10 (0-99); PLATELET COUNT 412 10^3/uL (150-400); RED BLOOD CELL COUNT 4.72 10^6/uL (4.40-6.38); RED CELL DISTRIBUTION WIDTH 13.4 % (11.5-15.2)
[2016-04-29 05:10] LABS: ANION GAP 11 mEq/L (8-16); CALCIUM 9.1 mg/dL (8.5-10.4); CARBON DIOXIDE 27 mEq/l (22-31); CHLORIDE 106 mEq/L (97-110); GLOMERULAR FILTRATION RATE > 60; GLUCOSE 99 mg/dL (70-100); POTASSIUM 4.4 mEq/L (3.5-5.2); SODIUM 144 mEq/L (134-144)
[2016-04-29] MEDS: PREGABALIN 150 MG CAP PO SCH (08:10)
[2016-04-29] MEDS: DOXYCYCLINE HYCLATE 100 MG CAP/TAB PO SCH (08:11)
[2016-04-29] MEDS: POLYETHYLENE GLYCOL 3350 17 GM PKT PO SCH (08:11)
[2016-04-29] MEDS: SENNOSIDES/DOCUSATE SODIUM TAB PO SCH (08:12)
[2016-04-29] MEDS: TAMSULOSIN HCL 0.4 MG CAP PO SCH (08:12)
[2016-04-29] MEDS: ENOXAPARIN 40 MG/0.4 ML SYR SC SCH (08:17)
[2016-04-29] MEDS: FLUTICASONE NASAL 120 SPRAYS/16 GM MDI EACHNARE SCH (08:20)
[2016-04-29] MEDS: FLUTICASONE/SALMETER 250/50MCG DISKUS IH SCH (08:21)
[2016-04-29] MEDS: ERTAPENEM 1 GM in NS 100 ML IV SCH (08:37)
--- NOTE | 2016-04-29 11:13 | HOSPPROG ---
Hospitalist Progress Note Assessment/Plan: 65-year-old male admitted for hypoxemia shortness of breath and found to have bilateral infiltrates consistent with pneumonia. -bilateral infiltrates consistent with interstitial pneumonitis, atypical, or possibly aspiration. Patient is currently on Invanz and doxycycline and he is improving. He was afebrile with a normal white count and admission and continues to be afebrile. He also continues to be mildly hypoxic though he has no history of chronic respiratory failure. Though he is improving he is not resolved the problem. CTA of the chest shows no evidence of a pulmonary embolus but confirms the findings of interstitial pneumonitis with some right- sided pleural effusion. This finding suggests possibly both the acute and chronic process. -hypoxemia and chronic respiratory failure. His oxygen need will be assessed today -acute renal failure on presentation which has been slowly resolving. Creatinine is normal today. -severe sepsis on presentation now resolved -chronic back pain: No complaints today. He was on considerable narcotic medication through Vanesa Ornelas at the pain clinic on admission. He is receiving approximately 1/2 of his narcotic that he receives as an outpatient. He appears to be doing well and I suggest we discharge him on that dose of medication for followup with Vanesa as an outpatient -protein caloric malnutrition: He is currently eating well and I believe has adequate caloric intake. -TSH is low. It is not critically low and can be followed up on an outpatient basis. -history of reactive airway disease for which she has received Advair in the past. -disposition: Possible 1-2 days. Will assess his O2 needs for discharge and oxygen needs. -DVT prophylaxis is with Lovenox and ambulation Plan: Pulmonary consultation regarding the atypical findings on his chest x- ray. He may be able to be discharged following the pulmonary consultation. Subjective: Reports he is feeling well and wants to return home he says he is less short of breath and his cough is nearly resolved. He is eating well and moving his bowels. Objective: Vital Signs Temp Pulse Resp BP Pulse Ox 36.3 C 67 16 159/92 H 92 04/29/16 08:00 04/29/16 08:00 04/29/16 08:00 04/29/16 08:00 04/29/16 08:00 Laboratory Results 04/29/16 03:30 04/29/16 03:30 04/28/16 04/29/16 04/30/16 05:59 05:59 05:59 Intake Total 715 1360 286 Balance 715 1360 286 PT 16.6 SEC (12.0-15.0) H 04/22/16 13:54 INR 1.34 (0.83-1.16) H 04/22/16 13:54 - Time Spent With Patient Time Spent with Patient: greater than 35 minutes Time Spent with Patient: Greater than 35 minutes spent on this patients care, greater than 50% of time spent counseling, educating, and coordinating care regarding the above mentioned plan. - Physical Exam Constitutional: no apparent distress Eyes: PERRL Ears, Nose, Mouth, Throat: moist mucous membranes, hearing normal Cardiovascular: regular rate and rhythym, no murmur, rub, or gallop Respiratory: reduced air movement, bronchial breath sounds, rhonchi Gastrointestinal: normoactive bowel sounds, soft, non-tender abdomen, no palpable masses Genitourinary: no bladder fullness Skin: warm Neurologic: AAOx3, other (He sometimes seems confused and this may be secondary to his narcotic. Has he will be returning home of a cognitive evaluation performed before discharge.) ICD10 Worksheet Patient Problems: Problems Problem Status Onset Chronic Disease Mgmt/Transitional Care Acute Pneumonia Acute Severe sepsis Acute Renal insufficiency Acute
--- NOTE | 2016-04-29 16:04 | PDIAF ---
- Diagnosis Code Status: Full Code - Medication Management Discharge Medications: Medications to Continue on Transfer Atorvastatin Calcium [Lipitor 20 mg (*)] 20 mg PO HS 04/22/16 [Last Taken 21:00] Diazepam [Valium 10 MG (*)] 10 mg PO HS PRN 04/22/16 [Last Taken Unknown] Fluticasone Nasal [Flonase Nasal [place]] 1 sprays NASAL DAILY 04/22/16 [Last Taken Unknown] Fluticasone/Salmeter 250/50Mcg [Advair 250/50 (*)] 1 puffs IH DAILY 04/22/16 [ Last Taken 04/21/16] Hydrochlorothiazide [HCTZ (*)] 12.5 mg PO DAILY 04/22/16 [Last Taken Unknown] Lisinopril [Zestril 20 mg (*)] 20 mg PO DAILY 04/22/16 [Last Taken Unknown] Naproxen Sodium [Aleve 220 MG (*)] 220 mg PO BID 04/22/16 [Last Taken Unknown] Pregabalin [Lyrica] 300 mg PO BID 04/22/16 [Last Taken 04/22/16 08:00] Zolpidem Tartrate [Ambien 10 mg] 5 - 10 mg PO HS PRN 04/22/16 [Last Taken Unknown] oxyCODONE IR [Oxycodone Ir (*)] 15 mg PO Q6H PRN MDD MAX 3 TABS DAILY 04/22/16 [ Last Taken Unknown] levOFLOXACIN [Levaquin] 750 mg PO DAILY #7 tablet 04/29/16 [Last Taken Unknown] oxyCODONE CR [Oxycontin] 40 mg PO BID #0 tab 04/29/16 [Last Taken Unknown] Discharge Medications: Refer to the Discharge Home Medication list for PRN reason. - Orders Services needed: Home Care, Registered Nurse, Physical Therapy, Occupational Therapy Home Care Face to Face: I certify that this patient was under my care and that I had the required [id number] encounter meeting the encounter requirements on the discharge day. My findings support the fact that the patient is homebound as defined in CMS Chapter 7 Medicare Benefits Manual 30.1.1, The condition of the patient is such that there exists a normal inability to leave home and consequently, leaving home would require a considerable and taxing effort. Diet Recommendation: no restrictions on diet Diet Texture: Regular Texture Diet - Follow Up Care Current Providers and Referrals: Ellis Harry MD [Medical Doctor] - Weston Chahal MD [Primary Care Provider] - 05/02/16 11:30 am Vanesa Ornelas RN [Certified Nurse Practioner] - follow up in 1 week
--- NOTE | 2016-04-29 17:16 | GDS ---
[f rep st] DISCHARGE SUMMARY DIAGNOSES: Known acute diagnoses on this admission: 1. Acute pneumonia aspiration versus viral with secondary bacterial superinfection. 2. Acute renal failure, resolved at the time of discharge. 3. Severe sepsis present on admission with an elevated lactate, now resolved. 4. Chronic back pain with chronic narcotic dependency. 5. Hypertension. 6. Reactive airway disease for the past 4-5 years with an acute exacerbation during this admission. 7. Acute respiratory failure with hypoxemia on admission. CONSULTATION: Pulmonary. PROCEDURES: None. HISTORY OF PRESENT ILLNESS: A 66-year-old male with a known history of reactive airway disease, pre sented with acute respiratory failure, hypoxemia and a normal lactate at 1.0. On admission, he had a normal white count, which was slowly rising during the time of his hospitalization. He also had a cute renal failure with a creatinine of 4.6, BUN of 82, which resolved to normal at the time of disc harge. Chest x-ray showed significant right and left lung infiltrates which could be consistent wit h aspiration or acute viral pneumonitis. A CTA of the chest did not show thromboembolic disease, bu t showed diffuse interstitial pneumonitis in both lungs, right greater than left superimposed on a r ight lower lobe atelectasis. The gentleman progressively and slowly improved. He was hypoxic, but resolved the hypoxemia and sarah l not require oxygen at the time of discharge. A pulmonary consultation on the day of discharge was performed and is pending at the time of this dictation. The consult was done because his presentat ion was atypical, the hypoxemia had persisted, and white count was rising, though he was afebrile, f eeling improved and had resolved his hypoxemia. DISCHARGE MEDICATIONS: Levaquin 750 mg p.o. daily x7 days, Ambien 10 mg daily, lisinopril 20 mg leticia ly, Lipitor 20 mg daily, hydrochlorothiazide 12.5 mg daily, Flonase nasal spray 1 spray each nostril daily, Advair 250/50 mcg 1 puff twice daily, Lyrica 300 mg twice daily, Valium 10 mg p.o. at bedtim e p.r.n. naproxen 220 mg twice daily, Oxy IR 15 mg p.o. q.6 hours p.r.n. pain and oxycodone ER 80 mg q.12 hours. Note that I have decreased his narcotic needs to approximately 1/2 of what he was taking at the time of admission. It is possible the gentleman has taken excessive narcotic and aspirated unknowingly. The patient himself does not remember his admission and thus, I have chosen to lower his narcotic, and he seemed to have good pain control despite this decrease in medication. PLAN: The gentleman is discharged to home. He will follow up with Vanesa Ornelas in approximately 1 week for management of his pain medications. He will also see his own physician, Dr. Weston Chahal on 05/02 at 11:30 a.m. A consultation with Dr. Ellis Harry is pending and he will see Dr. Harry for Pulmonary in 1-2 weeks. Time this discharge required 45 minutes, greater than 50% to group counselor and coordinate his care and ass ess whether the gentleman needed oxygen and to assess whether he was safe at home. /[id number]/MODL
[2016-04-29 17:53] VITALS: BP 149/77; PULSE 68; RESP 16; TEMP 98.7; O2SAT 91
== END 2016-04-29 17:21 | disposition home health service (06) | DRG 871 ==
LOC: OBSVTOIN 16:39 → F2W 16:43
PROVIDERS: ADMIT Internal Medicine; ATTEND Internal Medicine
DX: A41.9 Sepsis, unspecified organism (principal); R65.20 Severe sepsis without septic shock; J96.01 Acute respiratory failure with hypoxia; J18.8 Other pneumonia, unspecified organism; N17.9 Acute kidney failure, unspecified; J45.901 Unspecified asthma with (acute) exacerbation; F11.20 Opioid dependence, uncomplicated; G89.29 Other chronic pain; I10 Essential (primary) hypertension; K59.00 Constipation, unspecified; B96.89 Other specified bacterial agents as the cause of diseases classified elsewhere; Z23 Encounter for immunization
CPT/HCPCS: 92507-GN; 92523-GN; 92526-GN; 92610-GN; 96365; 97112-GP; 97116-GP; 97162-GP; 97165-GO; 97530-GO; 97530-GP; 97535-GO; G0009; G8978-GP-CK; G8979-GP-CI; G8987-GO-CJ; G8988-GO-CI; G8996-GN-CH; G8997-GN-CH; G8998-GN-CH; G9168-GN-CJ; G9169-GN-CI; J1335; J1650; J1956; Q9967

== ENCOUNTER → 2016-05-02 | Outpatient (CLI) | payer OTHER | LOC: BMCIMAGING 12:24 | PROVIDERS: ATTEND Internal Medicine | DX: J15.9 Unspecified bacterial pneumonia (principal) ==

== ENCOUNTER → 2016-07-18 | Outpatient (CLI) | payer OTHER | LOC: BHFA 13:00 | PROVIDERS: ATTEND Internal Medicine Critical Care Medicine | DX: J45.909 Unspecified asthma, uncomplicated (principal) | CPT/HCPCS: 94060; 94070; 94726; 94729; J7674 ==

== ENCOUNTER → 2016-08-30 | Outpatient (CLI) | payer OTHER | LOC: BMCIMAGING 16:28 | PROVIDERS: ATTEND Internal Medicine | DX: M99.71 Connective tissue and disc stenosis of intervertebral foramina of cervical region (principal); I65.23 Occlusion and stenosis of bilateral carotid arteries ==

== ENCOUNTER → 2016-09-06 | Outpatient (CLI) | payer OTHER | LOC: FIMAGING 16:08 | PROVIDERS: ATTEND Internal Medicine | DX: M40.204 Unspecified kyphosis, thoracic region (principal); M99.71 Connective tissue and disc stenosis of intervertebral foramina of cervical region; R20.2 Paresthesia of skin; R29.2 Abnormal reflex; I65.29 Occlusion and stenosis of unspecified carotid artery; M81.0 Age-related osteoporosis without current pathological fracture ==

== ENCOUNTER → 2016-09-12 | Outpatient (CLI) | payer OTHER | LOC: BRMIMAGING 10:36 | PROVIDERS: ATTEND Internal Medicine | DX: Z13.820 Encounter for screening for osteoporosis (principal); M81.0 Age-related osteoporosis without current pathological fracture; M54.2 Cervicalgia; I65.23 Occlusion and stenosis of bilateral carotid arteries; R20.2 Paresthesia of skin | CPT/HCPCS: 93880-PO ==

== ENCOUNTER → 2016-12-18 | Outpatient (CLI) | payer OTHER | LOC: FIMAGING 09:42 | PROVIDERS: ATTEND Internal Medicine | DX: K82.8 Other specified diseases of gallbladder (principal); N28.1 Cyst of kidney, acquired; R16.0 Hepatomegaly, not elsewhere classified ==

== ENCOUNTER → 2017-01-07 | Outpatient (CLI) | payer OTHER | LOC: FIMAGING 09:45 | PROVIDERS: ATTEND Internal Medicine | DX: K44.9 Diaphragmatic hernia without obstruction or gangrene (principal); K21.9 Gastro-esophageal reflux disease without esophagitis; R19.2 Visible peristalsis; K57.10 Diverticulosis of small intestine without perforation or abscess without bleeding ==

== ENCOUNTER → 2017-06-05 | Outpatient (CLI) | payer OTHER | LOC: BMCIMAGING 10:45 | PROVIDERS: ATTEND Internal Medicine | DX: R91.8 Other nonspecific abnormal finding of lung field (principal) ==

== ENCOUNTER → 2017-06-27 | Outpatient (CLI) | payer OTHER | LOC: FIMAGING 09:27 | PROVIDERS: ATTEND Internal Medicine | DX: R10.10 Upper abdominal pain, unspecified (principal); R11.0 Nausea; R14.0 Abdominal distension (gaseous); K82.4 Cholesterolosis of gallbladder; K76.0 Fatty (change of) liver, not elsewhere classified; N28.1 Cyst of kidney, acquired ==

== ENCOUNTER → 2017-11-21 | Outpatient (CLI) | payer OTHER | LOC: FIMAGING 08:18 | PROVIDERS: ATTEND Surgery | DX: K82.1 Hydrops of gallbladder (principal) ==

== ENCOUNTER 2017-12-11 05:51 | Day surgery (SDC) | payer OTHER ==
--- NOTE | 2017-12-10 10:16 | GHP ---
DATE OF ADMISSION: 12/11/2017 CHIEF COMPLAINT: Right upper quadrant pain. HISTORY OF PRESENT ILLNESS: The patient is a 67-year-old male who complains of right upper quadrant discomfort that feels "tight as a drum" over the past 9 months. It occurs daily and is triggered after the consumption of fatty meals. Occasionally, it keeps him up at night. He also feels somewhat queasy. He has tried Tums, which does not help symptoms. Gas-X occasionally gives him some relief. Additionally, he complains of chronic constipation that is currently well controlled. He also has a small umbilical hernia that has been present for several months. He denies diarrhea or blood in his stools. He denies a previous history of abdominal surgery. He was sent for an abdominal ultrasound by his PCP. The ultrasound revealed gallbladder hydrops and dependent intramural sludge. There is no evidence of acute cholecystitis, biliary obstruction, or free fluid. PAST MEDICAL HISTORY: Hypercholesterolemia, anxiety disorder, chronic pain, valvular heart disease, asthma, chronic opioid dependence, hiatal hernia, neck pain, cervical radiculopathy, lumbar back pain. PAST SURGICAL HISTORY: None. FAMILY MEDICAL HISTORY: Noncontributory. MEDICATIONS: Ambien 10 mg, atorvastatin 20 mg, fluticasone 50 mcg per actuation , hydrochlorothiazide 25 mg, Hysingla ER 60 mg, ipratropium bromide 42 mcg, Lyrica 200 mg, oxycodone 30 mg, ProAir HFA p.r.n., Valium 5 mg. ALLERGIES: No known drug allergies. SOCIAL HISTORY: He is a nonsmoker and occasional an alcohol user, and he denies recreational drug use. PHYSICAL EXAM: GENERAL: well appearing, well dressed 67 y/o male in no acute distress. HEENT: Pupils equal and round, normocephalic, atraumatic, no gross hearing deficits, mucous membranes moist CARDIAC: Regular rate and rhythm, no clicks murmurs rubs RESPIRATORY: Clear to auscultation bilaterally, no wheezes rhonchi or rales ABDOMEN: soft, tender to palpation in the right upper quadrant , nondistended, reducible umbilical hernia MUSCULOSKELETAL: Moves all extremities equally NEURO: Alert and oriented PSYCHIATRIC: Appropriate mood and affect IMPRESSION/PLAN: This is a 67-year-old male with right upper quadrant pain, likely due to hydrops of the gallbladder. We discussed all risks and options. Risks of the laparoscopic cholecystectomy, include, but are not limited to infection, bleeding, damage to surrounding structures, including the bile duct, bile leak, heart attack, and . Patient understands and wishes to proceed with laparoscopic cholecystectomy. In addition, the patient has an umbilical hernia repair that he would like repaired. We will plan for repairing the umbilical hernia at the same time as his gallbladder. /[id number]/MODL MTDD
[2017-12-11] MEDS ORDERED: cefOXitin SODIUM 2 GM in NS 100 ML IV ONE (06:00)
[2017-12-11] MEDS ORDERED: LIDOCAINE 1% 2 ML INJ ID PRN (06:08)
[2017-12-11] MEDS ORDERED: LR 1,000 ML IV ONE (06:08)
[2017-12-11] MEDS ORDERED: HEPARIN 1000 UNIT/1 ML MDV ONE (06:57)
[2017-12-11] MEDS ORDERED: BUPIVACAINE 0.5% 30 ML SDV ONE (06:57)
[2017-12-11] MEDS ORDERED: ceFAZolin 1 GM/5 ML SYR ONE (06:58)
--- NOTE | 2017-12-11 06:58 | PDANEPAE ---
ANE History of Present Illness laparoscopic cholecystectomy, ventral hernia repair ANE Past Medical History - Cardiovascular History Hx Hypertension: Yes Hx Arrhythmias: No Hx Chest Pain: No Hx Coronary Artery / Peripheral Vascular Disease: No Hx CHF / Valvular Disease: No Hx Palpitations: No Cardiovascular History Comment: HYPERCHOLESTEROLEMIA. PCP MONITORS BP MEDICATIONS - Pulmonary History Hx COPD: No Hx Asthma/Reactive Airway Disease: No Hx Recent Upper Respiratory Infection: No Hx Oxygen in Use at Home: No Hx Sleep Apnea: No Sleep Apnea Screening Result - Last Documented: Positive Pulmonary History Comment: ION TRIGGERS. ASTHMA- DOESN'T USE INHALERS MUCH. HX OF BRONCHITIS AND PNA - Neurologic History Hx Cerebrovascular Accident: No Hx Seizures: No Hx Dementia: No - Endocrine History Hx Diabetes: No Hypothyroid: No Hyperthyroid: No Obesity: mild - Renal History Hx Renal Disorders: No - Liver History Hx Hepatic Disorders: No - Neurological & Psychiatric Hx Hx Neurological and Psychiatric Disorders: Yes Neurological / Psychiatric History Comment: ANXIETY. INSOMNIA - Cancer History Hx Cancer: No - Congenital Disorder History Hx Congenital Disorders: No - GI History GERD: no Hx Gastrointestinal Disorders: Yes Gastrointestinal History Comment: GERD, occasionally. CHRONIC CONSTIPATION. HX OF HIATAL HERNIA, patient reports mistakenly reporting a hiatal hernia to PST nurse - Other Health History Other Health History: WEARS READING GLASSES. CHRONIC PAIN PT - Chronic Pain History Chronic Pain: Yes (NECK, BACK AND LEFT SHOULDER, on chronic opioids) - Surgical History Prior Surgeries: HERNIA REPAIR X2. TONSILLECTOMY A CHILD ANE Review of Systems Review of Systems: - Exercise capacity METS (RN): 4 METS ANE Patient History - Allergies Allergies/Adverse Reactions: No Allergies [NKDA] Allergy (Verified 12/10/17 14:30) - Home Medications Home Medications: Atorvastatin Calcium [Lipitor 20 mg (*)] 04/22/16 [Last Taken 12/10/17 21:00] Diazepam [Valium 10 MG (*)] PRN 04/22/16 [Last Taken 12/08/17] Fluticasone Nasal [Flonase Nasal [place]] DAILY 04/22/16 [Last Taken 12/10/17 09: 00] Fluticasone/Salmeter 250/50Mcg [Advair 250/50 (*)] DAILY 04/22/16 [Last Taken 09:00] Hydrochlorothiazide [HCTZ (*)] HS 04/22/16 [Last Taken 12/09/17] Lisinopril [Zestril 20 mg (*)] DAILY 04/22/16 [Last Taken 12/10/17 21:00] Pregabalin [Lyrica] TID 04/22/16 [Last Taken 12/11/17 05:00] Zolpidem Tartrate [Ambien 10 mg] HS PRN 04/22/16 [Last Taken 12/10/17 21:00] Hysingla ER 12/03/17 [Last Taken 12/09/17] Linzess 12/03/17 [Last Taken 12/10/17 09:00] Oxycodone HCl 12/03/17 [Last Taken 12/10/17 21:00] Proair Hfa Icu (*) 12/03/17 [Last Taken 12/04/17] Tizanidine HCl 12/03/17 [Last Taken 12/05/17] - NPO status NPO Since - Liquids (Date): 12/10/17 NPO Since - Liquids (Time): 23:00 NPO Since - Solids (Date): 12/10/17 NPO Since - Solids (Time): 21:00 - Anes Hx Anes Hx: no prior problems (had visual disturbances after ether) - Smoking Hx Smoking Status: Never smoked Marijuana use: Yes - Alcohol Use Alcohol Use: Other (1 beer/day) - Family Anes Hx Family Hx Anesthesia Complications: NONE ANE Labs/Vital Signs - Vital Signs Blood Pressure: 132/88 Heart Rate: 70 Respiratory Rate: 10 O2 Sat (%): 94 Height: 180.34 cm Weight: 87.09 kg ANE Physical Exam - Airway Neck exam: FROM (complains of pain with CS lateral rotation only) Mallampati Score: Class 3 Mouth exam: normal dental/mouth exam (upper implants/veneers) - Pulmonary Pulmonary: clear to auscultation - Cardiovascular Cardiovascular: regular rate and rhythym - ASA Status ASA Status: III ANE Anesthesia Plan Anesthesia Plan: general endotracheal anesthesia (discussed possible pain management issues given hx of chonic opioid use.)
[2017-12-11] MEDS ORDERED: MIDAZOLAM 2 MG/2 ML VIAL IVP ONE (07:03)
[2017-12-11] MEDS ORDERED: MIDAZOLAM 2 MG/2 ML VIAL ONE (07:08)
[2017-12-11] MEDS ORDERED: fentaNYL 250 MCG/5 ML INJ ONE (07:10)
[2017-12-11] MEDS ORDERED: PROPOFOL 200 MG/20 ML VIAL ONE (07:11)
[2017-12-11] MEDS ORDERED: DEXAMETHASONE 4 MG/ML VIAL ONE (07:11)
[2017-12-11] MEDS ORDERED: ROCURONIUM 50 MG/5 ML VIAL ONE (07:11)
--- NOTE | 2017-12-11 07:11 | PDHPUP ---
History & Physical Update H&P update statement: This history and physical update is based on an assessment of the patient which was completed after admission or registration (within 24 hours), but prior to the surgery/procedure. H&P update: H&P reviewed & patient examined, no change in patient's condition since H&P completed
[2017-12-11] MEDS ORDERED: ONDANSETRON 4 MG/2 ML VIAL ONE (08:11)
[2017-12-11] MEDS ORDERED: oxyCODONE IR 5 MG TAB PO PRN (08:14)
[2017-12-11] MEDS ORDERED: ONDANSETRON 4 MG/2 ML VIAL IVP PRN (08:14)
[2017-12-11] MEDS ORDERED: NALOXONE HCL 0.4 MG/ML INJ IVP PRN (08:14)
[2017-12-11] MEDS ORDERED: SUGAMMADEX SODIUM 200 MG/2 ML VIAL IVP ONE (08:18)
[2017-12-11] MEDS ORDERED: fentaNYL 100 MCG/2 ML INJ ONE ×2 (08:26→08:55)
--- NOTE | 2017-12-11 08:45 | POSTOPPROG ---
Post Op Note Date of Operation: 12/11/17 Surgeon: Devante Steele Rock Splitter: Luci Anesthesiologist: Jeremy Anesthesia: GET(General Endotracheal) Pre-op Diagnosis: umbilical hernia, cholecystitis Post-op Diagnosis: same Indication: Pain Procedure: Lap raymond, umbilical hernia repair Findings: umbilical hernia, cholecystitis Inf/Abcess present in the surg proc area at time of surgery?: No Depth: Organ Space EBL: Minimal Specimen(s): Gallbladder Umbilical hernia sac.
[2017-12-11] MEDS: fentaNYL 100 MCG/2 ML INJ IVP PRN ×2 (08:54→09:02)
[2017-12-11] MEDS ORDERED: HYDROmorphONE/DILAUDID 2 MG/ML INJ ONE (09:14)
[2017-12-11] MEDS: HYDROmorphONE/DILAUDID 2 MG/ML INJ IVP PRN ×3 (09:15→09:47)
--- NOTE | 2017-12-11 10:47 | POSTANESTH ---
Post Anesthetic Evaluation Cardiovascular Status: Similar to Pre-Op Cond Respiratory Status: Normal, Stable Level of Consciousness/Mental Status: Can Participate in Eval Pain Control: Adequate, Prn Tx Ordered Nausea/Vomiting Control: Adequate, Prn Tx Ordered Complications Possibly Related to Anesthesia: None Noted
[2017-12-11] MEDS ORDERED: oxyCODONE IR 5 MG TAB ONE (10:55)
[2017-12-11 11:44] VITALS: BP 157/86
--- NOTE | 2017-12-16 06:23 | GOP ---
DATE OF OPERATION: 12/11/2017 SURGEON: Devante Steele MD MACHINE SHOP LEAD MAN: Charito Verma NP. PREOPERATIVE DIAGNOSIS: Symptomatic cholelithiasis and symptomatic umbilical hernia. POSTOPERATIVE DIAGNOSIS: PROCEDURE PERFORMED: FINDINGS: Patient was found to have a 2 cm umbilical hernia defect. He had the gallbladder complete ly covered with adhesions and quite distended. Ducts were small. DESCRIPTION OF PROCEDURE: Patient taken to the operating room where he received a satisfactory gener al endotracheal anesthesia. He was placed in supine position, prepped and draped in the usual steril e fashion. An infraumbilical incision was made. Dissection was carried down to the fascia. Umbilic al hernia sac was dissected free from surrounding subcutaneous tissue and the back of the skin. A Ve ress needle was inserted. Pneumoperitoneum was established. A trocar was introduced. Good visualiz ation was obtained. Three other trocars were placed through the upper abdomen under direct vision. Gallbladder was exposed. It was completely covered with adhesions. These were taken down with elect rocautery until the gallbladder could be exposed for its entire length. The gallbladder was elevated up. The cystic triangle was carefully exposed. The cystic duct and cystic artery were dissected fr ee. The gallbladder was freed up from the liver bed. A good clear view was established. Both struc tures were multiply hemoclipped and divided, care to avoid injury to the common bile duct which was w ell visualized. Peritoneum of the gallbladder was incised, and the gallbladder was dissected free fr om the bed and hepatic fossa. It was then extracted through the umbilical trocar site and removed. The trocar was then removed under direct vision. Trocar sites were closed with 0 Vicryl for the fasc ia and 4-0 Monocryl subcuticular stitch for the skin. All layers infiltrated with 0.5% Marcaine. Th e umbilical hernia defect was exposed. The sac was opened at the fascial edges which were freshened up. [id number] 2-layer closure was done of the umbilical defect with 0 Surgilon mattress suture s. Wound was infiltrated with 0.5% Marcaine. No mesh was used because of the gallbladder being brou ght out through this incision. Subcu was closed with 3-0 Vicryl and skin with a 4-0 Monocryl subcuti cular stitch. All wounds were infiltrated with 0.5% Marcaine. There were no complications. He was taken to recovery room in good condition. /[id number]/MODL
== END 2017-12-11 11:50 | disposition home or self-care (01) ==
LOC: FSGY 05:51
PROVIDERS: ATTEND Surgery
PROC: 0WQF0ZZ Repair Abdominal Wall, Open Approach (ICD-10-PCS; principal; 2017-12-11 07:15)
PROC: 0FT44ZZ Resection of Gallbladder, Percutaneous Endoscopic Approach (ICD-10-PCS; 2017-12-11 07:15)
DX: K80.20 Calculus of gallbladder without cholecystitis without obstruction (principal); K42.9 Umbilical hernia without obstruction or gangrene
CPT/HCPCS: J0694; J1100; J1170; J2250; J2405; J2704; J3010